=== PATIENT | female | born 1995 | race Hispanic/Latino ===

== ENCOUNTER 2018-11-19 19:36 | Emergency (ER) | payer OTHER ==
[~2018-11-19] VITALS: Ht 160 cm; Wt 54.4 kg
--- OUTSIDE RECORDS SUMMARY | 2018-11-19 19:40 | XMS REPORT ---
Author [facility] Address Unknown Phone Unavailable Care Team Providers Care Manager Utility Name Role Phone Unavailable Unavailable Payers Payer Name Policy Type Policy Number Effective Date Expiration Date Problems This patient has no known problems. Allergies, Adverse Reactions, Alerts Allergy Name Allergy Type Status Severity Reaction(s) Onset Date Inactive Date Treating Clinician Comments No Known Drug Allergies DA Active U 2018-08-07 00:00:00 No Known Drug Allergies DA Active U 2016-07-08 00:00:00 Medications This patient has no known medications. Results Test Description Test Time Test Comments Text Results Atomic Results Result Comments CBC W/AUTO DIFF 2018-08-16 07:02:00 WHITE BLOOD CELL (test code=WBC) 9.2 K/mm3 6.6-12.1 RED BLOOD CELL (test code=RBC) 3.72 M/mm3 3.45-5.01 HEMOGLOBIN (test code=HGB) 11.1 g/dL 10.7-13.9 HEMATOCRIT (test code=HCT) 33.0 % 32.1-42.1 MEAN CELL VOLUME (test code=MCV) 89 fL 84.1-94.8 MEAN CELL HGB (test code=MCH) 29.8 pg 27-35 MEAN CELL HGB CONCETRATION (test code=MCHC) 33.6 gm/dL 32.2-34.1 RED CELL DISTRIBUTION WIDTH (test code=RDW) 12.5 % 12.4-16.5 PLATELET COUNT (test code=PLT) 126 K/mm3 133-385 IMMATURE PLATELET FRACTION (test code=IPF) 0.0 % 0.0-10.8 MEAN PLATELET VOLUME (test code=MPV) 10.8 fl 9.1-12.7 NEUTROPHIL % (test code=NT%) 76.0 % 56.5-79.4 LYMPHOCYTE % (test code=LY%) 17.6 % 14.3-34.3 MONOCYTE % (test code=MO%) 5.4 % 5.1-10.4 EOSINOPHIL % (test code=EO%) 0.1 % 0.1-3.0 BASOPHIL % (test code=BA%) 0.2 % 0.1-1.0 NEUTROPHIL # (test code=NT#) 7.0 K/mm3 LYMPHOCYTE # (test code=LY#) 1.6 K/mm3 MONOCYTE # (test code=MO#) 0.5 K/mm3 EOSINOPHIL # (test code=EO#) 0.01 K/mm3 BASOPHIL # (test code=BA#) 0.0 K/mm3 RBC MORPHOLOGY REQUIRED (test code=RBCM) NORMAL NORMAL PLATELET MORPHOLOGY REQUIRED (test code=PLTMR) NORMAL NORMAL AG HEPATITIS B [id number] 17:01:00* Test Item Value Reference Range Comments AG HEPATITIS B SURFACE (test code=HBSAG) NONREACTIVE NONREACTIVE IS CONSENT FORM SIGNED FOR HIV TESTING? YAB HEPATITIS C [id number] 17:01:00* Test Item Value Reference Range Comments AB HEPATITIS C (test code=HCVAB) NONREACTIVE NONREACTIVE SIGNAL TO CUTOFF (test code=CUTOFF) 0.07 <0.80 IS CONSENT FORM SIGNED FOR HIV TESTING? YAB [id number] 17:01:00* Test Item Value Reference Range Comments AB TREPONEMA (test code=TREPAB) NONREACTIVE NONREACTIVE IS CONSENT FORM SIGNED FOR HIV TESTING? YAB HIV 1 17:01:00* Test Item Value Reference Range Comments AB HIV 1 2 (test code=FQU23AR) NONREACTIVE NONREACTIVE Done by [employer] HIV Ag/Ab Combo Screen IS CONSENT FORM SIGNED FOR HIV TESTING? YAG HEPATITIS B [id number] 16:36:00* Test Item Value Reference Range Comments AG HEPATITIS B SURFACE (test code=HBSAG) NONREACTIVE NONREACTIVE IS CONSENT FORM SIGNED FOR HIV TESTING? YAB HEPATITIS C [id number] 16:36:00* Test Item Value Reference Range Comments AB HEPATITIS C (test code=HCVAB) NONREACTIVE SIGNAL TO CUTOFF (test code=CUTOFF) <0.80 IS CONSENT FORM SIGNED FOR HIV TESTING? YAB [id number] 16:36:00* Test Item Value Reference Range Comments AB TREPONEMA (test code=TREPAB) NONREACTIVE NONREACTIVE IS CONSENT FORM SIGNED FOR HIV TESTING? YAB HIV 1 16:36:00* Test Item Value Reference Range Comments AB HIV 1 2 (test code=UHB24NE) NONREACTIVE IS CONSENT FORM SIGNED FOR HIV TESTING? YCBC W/AUTO [id number] 14:07:00* Test Item Value Reference Range Comments WHITE BLOOD CELL (test code=WBC) 7.0 K/mm3 6.6-12.1 RED BLOOD CELL (test code=RBC) 4.03 M/mm3 3.45-5.01 HEMOGLOBIN (test code=HGB) 11.9 g/dL 10.7-13.9 HEMATOCRIT (test code=HCT) 35.0 % 32.1-42.1 MEAN CELL VOLUME (test code=MCV) 87 fL 84.1-94.8 MEAN CELL HGB (test code=MCH) 29.5 pg 27-35 MEAN CELL HGB CONCETRATION (test code=MCHC) 34.0 gm/dL 32.2-34.1 RED CELL DISTRIBUTION WIDTH (test code=RDW) 12.1 % 12.4-16.5 PLATELET COUNT (test code=PLT) 168 K/mm3 133-385 IMMATURE PLATELET FRACTION (test code=IPF) 0.0 % 0.0-10.8 MEAN PLATELET VOLUME (test code=MPV) 10.8 fl 9.1-12.7 NEUTROPHIL % (test code=NT%) 83.6 % 56.5-79.4 LYMPHOCYTE % (test code=LY%) 11.1 % 14.3-34.3 MONOCYTE % (test code=MO%) 4.6 % 5.1-10.4 EOSINOPHIL % (test code=EO%) 0.0 % 0.1-3.0 BASOPHIL % (test code=BA%) 0.1 % 0.1-1.0 NEUTROPHIL # (test code=NT#) 5.9 K/mm3 LYMPHOCYTE # (test code=LY#) 0.8 K/mm3 MONOCYTE # (test code=MO#) 0.3 K/mm3 EOSINOPHIL # (test code=EO#) 0 K/mm3 BASOPHIL # (test code=BA#) 0.0 K/mm3 RBC MORPHOLOGY REQUIRED (test code=RBCM) NORMAL NORMAL PLATELET MORPHOLOGY REQUIRED (test code=PLTMR) NORMAL NORMAL URINALYSIS [id number] 14:16:00* Test Item Value Reference Range Comments UA COLOR (test code=COLU) YELLOW YELLOW UA APPEARANCE (test code=APPU) Slightly-Cloudy CLEAR UA GLUCOSE DIPSTICK (test code=DGLUU) NEGATIVE NEG UA BILIRUBIN DIPSTICK (test code=BILU) NEGATIVE NEG UA KETONE DIPSTICK (test code=KETU) 2+ NEG UA SPECIFIC GRAVITY (test code=SGU) 1.013 1.001-1.035 UA BLOOD DIPSTICK (test code=STEPHY) 1+ NEG UA PH DIPSTICK (test code=RADHA) 6.0 5-9 UA PROTEIN DIPSTICK (test code=PROU) NEGATIVE NEG UA UROBILINIOGEN DIPSTICK (test code=URO) NEGATIVE mg/dL NEG UA NITRITE DIPSTICK (test code=LAUREN) NEG NEG UA LEUKOCYTE ESTERASE DIPSTICK (test code=LEUU) 3+ NEG UA WBC (test code=WBCU) TOO NUMEROUS TO CNT #/hpf NONE SEEN UA RBC (test code=RBCU) 16-20 #/hpf NONE SEEN UA EPITHELIAL CELLS (test code=EPIU) FEW #/HPF RARE-FEW UA BACTERIA (test code=BACU) RARE /HPF RARE-FEW UA MUCUS (test code=MUCU) RARE NONE SEEN Specimen Comment: FROM THE [facility] USMAN SAMPLE: CLEAN CATCHFETAL FIBRONECTIN 2018-08-07 14:16:00* Test Item Value Reference Range Comments FIBRONECTIN (test code=FFN) NEGATIVE Among symptomatic women, elevated levels (>0.05 ug/mL) offFN between 24 weeks and 34 weeks, 6 days indicate increasedrisk of delivery in <=7 or <=14 days from samplecollection. Similarly, among asymptomatic women, elevated levels of fFNbetween 22 weeks and 30 weeks, 6 days indicate increasedrisk of delivery in <=34 weeks, 6 days of gestation.
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
== END 2018-11-19 22:05 | disposition home or self-care (01) ==
LOC: FSED 19:36
DX: S06.890A Other specified intracranial injury without loss of consciousness, initial encounter (principal); S13.4XXA Sprain of ligaments of cervical spine, initial encounter; V43.52XA Car driver injured in collision with other type car in traffic accident, initial encounter; Y92.488 Other paved roadways as the place of occurrence of the external cause
CPT/HCPCS: 70450; 71046; 72040; 99283